=== PATIENT | male | born 1960 | race Hispanic/Latino ===

== ENCOUNTER 2023-04-19 06:44 | Day surgery (SDC) | payer OTHER ==
--- NOTE | 2023-04-18 11:27 | RAD REPORT ---
EXAM DESCRIPTION: Shahana Kennedy (2 Views)04/18/2023 10:59 am CLINICAL HISTORY: Preop gallbladder surgery. Hypertension COMPARISON: None FINDINGS: The lungs appear clear of acute infiltrate. The heart is normal size IMPRESSION: No acute abnormalities displayed
--- NOTE | 2023-04-18 11:38 | EKG ---
Test Date: 2023-04-18 Test Time: 10:44:25 Economics Lecturer: KASHIF MEASUREMENT RESULTS: Intervals: Rate: 75 NV: 154 QRSD: 86 QT: 420 QTc: 469 [place]: P: 51 NV: 154 QRS: 262 T: 64 INTERPRETIVE STATEMENTS: Normal sinus rhythm Right superior axis deviation Pulmonary disease pattern Right ventricular hypertrophy Abnormal ECG No previous ECG available for comparison Electronically Signed On 04-18-23 11:37:38 CDT by Darrion White
[2023-04-18 11:43] LABS: Absolute Lymphocytes (CBC) 2.7 K/uL (0.7-4.9); Hematocrit 42.4 % (39.6-49.0); MCV 91.8 fL (80-100); MPV 8.6 fL (7.6-11.3); Platelets 255 thou/uL (152-406); RBC Red Blood Cell Count 4.62 M/uL (4.33-5.43)
[2023-04-18 11:59] LABS: Albumin 3.6 g/dL (3.4-5.0); Bilirubin Direct 0.1 mg/dL (0-0.2); Bilirubin Indirect, Calculated 0.3 mg/dL (0.2-0.8); Bilirubin Total 0.4 mg/dL (0.2-1.0); Potassium 3.9 mEq/L (3.5-5.1); Protein, Total 7.2 g/dL (6.4-8.2)
[2023-04-19] MEDS ORDERED: CEFAZOLIN SODIUM 1 GM/VIAL ONE (07:10)
[2023-04-19] MEDS ORDERED: Ringers Lactate 1,000 ML IV ONE (07:10)
[2023-04-19] MEDS ORDERED: CEFOXITIN SODIUM 1 GM/VIAL ONE (07:43)
[2023-04-19] MEDS ORDERED: propofoL 200 MG/20 ML VIAL IV ONE (08:03)
[2023-04-19] MEDS ORDERED: LIDOCAINE 2% MPF 5 ML VIAL ONE (08:04)
[2023-04-19] MEDS ORDERED: ROCURONIUM 50 MG/5 ML VIAL IV ONE (08:04)
[2023-04-19] MEDS ORDERED: FENTANYL CITR 100 MCG/2 ML ONE (08:04)
[2023-04-19] MEDS ORDERED: HYDROMORPHONE HCL 2 MG/ML inj ONE (08:11)
[2023-04-19] MEDS ORDERED: SUGAMMADEX SODIUM 200 MG/2 ML VIAL IV ONE (08:12)
[2023-04-19] MEDS ORDERED: SUCCINYLCHOLINE 20 MG/ML (10 ML) IV ONE (08:12)
[2023-04-19] MEDS ORDERED: ONDANSETRON 4 MG/2 ML VIAL ONE (08:43)
[2023-04-19] MEDS ORDERED: dexAMETHasone 4 MG/ML VIAL ONE (08:43)
[2023-04-19] MEDS ORDERED: GLYCOPYRROLATE 0.2 MG/ML SYR ONE ×2 (08:54→09:17)
[2023-04-19] MEDS ORDERED: EPHEDRINE SULF 50 MG/ML VIAL ONE (08:56)
[2023-04-19] MEDS ORDERED: Phenylephrine HCl 10 MG/ML 1 ML VIAL ONE (08:59)
--- NOTE | 2023-04-19 09:09 | P.BOP ---
Preoperative diagnosis: symptomatic cholelithiasis, RUQ abd pain Postoperative diagnosis: same Primary procedure: Laparoscopic cholecystectomy Estimated blood loss: <10cc Specimen: gb Findings: as above, intradominal adhesions Anesthesia: General Complications: None Transferred to: Recovery Room Condition: Good
[2023-04-19] MEDS ORDERED: Mastisol Adhesive Liq ONE (09:16)
[2023-04-19] MEDS ORDERED: KETOROLAC 30 MG/ML INJ ONE (09:18)
[2023-04-19 10:06] VITALS: O2SAT 98
[2023-04-19] MEDS ORDERED: HYDROCODONE/APAP 5/325 MG TAB ONE (10:54)
[2023-04-19 14:30] VITALS: BP 137/81; TEMP 97.5
--- NOTE | 2023-04-19 15:57 | OP ---
Date of Procedure: 04/19/2023 Surgeon: Duglas Torres MD Preoperative Diagnoses: Symptomatic cholelithiasis, right upper quadrant abdominal pain. Postoperative Diagnoses: Symptomatic cholelithiasis, right upper quadrant abdominal pain. Procedure: Laparoscopic cholecystectomy. Estimated Blood Loss: Less than 10 cc. Specimen: Gallbladder. Anesthesia: General plus local. Complications: None. Indications: This is a case of a 63-year-old patient with above diagnoses. Fully explained the bene fits, alternatives, and risks of laparoscopic, possible open cholecystectomy, which include, but not limited to, infection, bleeding, damage to adjacent structures, anesthesia complication, choledocholi thiasis, bile leak, pancreatitis, IA, and even . He also understands this may not relieve any s ymptoms. He might need more than one surgical intervention. He understood, signed a consent. Procedure In Detail: Patient was brought to the operating room, placed in supine position. Anesthes ia was done without complication. A time-out was called. Abdomen was prepped and draped in sterile fashion. Marcaine 0.5% was injected for local anesthetic followed by sharp incision of the skin in t he epigastric region. Incision was carried down to fascia. We tried to stay from the umbilical area . Patient claimed that he had a hernia repair in the past with mesh in that region. So, the first i ncision was made in the epigastric area. Incision was carried down to fascia, which was opened under direct vision. Peritoneum was encountered and opened under direct vision. Vicryl #1 placed inside the fascia. Dameon trocar was carefully introduced. No bleeding was obtained. I placed 2 more troc ars, selected an area just away from the umbilical region, but in the periphery to place a 5 mm troca r under direct visualization. Obviously, I stayed away from the previous repair. Then, we put 2 mor e 5 mm trocar in the right upper quadrant under direct visualization. This allowed me to put a grasp er in the fundus of the gallbladder. We had many omental adhesions to the liver and the gallbladder and they were carefully removed with the help of Endo Tamica connected to Bovie cauterizer. Once we have those released, we were able to visualize the gallbladder and then put a grasper in the fundus o f the gallbladder, another grasper in the infundibulum retracting the gallbladder in the inferolatera l fashion exposing the triangle of Calot, and obtaining critical view. Cystic duct and cystic artery were clearly isolated, freed circumferentially and a connection between those and the gallbladder we re clearly identified. I proceeded to ligate those by using at least 3 clips proximal, 1 clip distal , ligation in middle. Same was done with the cystic artery. No bile leak. No bleeding. The gallbl adder was removed from the liver using Bovie cauterizer and removed from abdominal cavity using EndoC atch through the umbilical incision. Area was inspected once again. No bile leak. No bleeding. At that moment, I proceeded to remove the trocars under direct vision, deflated pneumoperitoneum, close d the fascia with #1 Vicryl, irrigated subcutaneous tissue, closing with 3-0 [address] skin with st aples. Sponge counts and instrument counts were correct. Patient tolerated the procedure well. Pat ient was sent to Recovery in stable condition. RENETTA/MERNA Voice ID: [id number] Report ID: [id number]
--- NOTE | 2023-04-19 16:00 | DS ---
Date of Discharge: 04/19/2023 Diagnoses: Symptomatic cholelithiasis, right upper quadrant abdominal pain. Procedure: Laparoscopic cholecystectomy. Disposition: Home. Activity: As tolerated. No heavy lifting. Plan: Follow up in my office in 1 week. Call for appointment at [phone]. Keep area dry for 48 hour s, then may shower. Keep Steri-Strip intact. RENETTA/MERNA Voice ID: [id number] Report ID: [id number]
== END 2023-04-19 11:17 | disposition home or self-care (01) ==
LOC: OR 06:44
PROVIDERS: ATTEND Surgery
PROC: 0FT44ZZ Resection of Gallbladder, Percutaneous Endoscopic Approach (ICD-10-PCS; principal; 2023-04-19 08:15)
DX: K80.10 Calculus of gallbladder with chronic cholecystitis without obstruction (principal); K66.0 Peritoneal adhesions (postprocedural) (postinfection); G47.33 Obstructive sleep apnea (adult) (pediatric); I10 Essential (primary) hypertension; G89.29 Other chronic pain; M54.9 Dorsalgia, unspecified; M06.9 Rheumatoid arthritis, unspecified; F41.9 Anxiety disorder, unspecified; E66.9 Obesity, unspecified; Z68.31 Body mass index [BMI] 31.0-31.9, adult
CPT/HCPCS: 36415; 71046; 80048; 80076; 83690; 85025; 88304; 93005; J0690; J0694; J1100; J1170; J2001; J2371; J2405; J2704; J3010; J7120

== ENCOUNTER 2024-03-07 11:41 | Observation (INO) | payer OTHER ==
--- OUTSIDE RECORDS SUMMARY | 2024-03-07 11:44 | XMS REPORT | Continuity of Care Document ---
Author Name Unknown Address [address] [facility] [address]. [address] [place] [address] [facility] thconnect Address [address] [facility]. [address] [place] [address] Support Name Relationship Address Phone ADOLFO Do, SBELE Primary Care Physician [address] [place] [address] LILIYA OROSCO MD Emergency Provider [address] [facility] [place] [address] ZOFIA HOFFMAN Next of Kin [address] [place] [address] PEGGY JACOBS, BETSY Hubbard Emergency Provider [address] [place] [address] RICKY JACOBS, MICHAELA Primary Care Physician [address] [facility] [address] [place] [address] IFOEMA KIMBLE [place] [address] MD MORGAN ARAMBULA MD A Emergency Provider [address] [facility] [place] [address] IFEOMA KIMLBE Next of Kin [address] [place] [address] DO Hayley HAHN Primary Care Physician [address] [place] [address] IFEOMA KIMBLE Family Member [address] [place] [address] Unavailable MD HEATH CONTRERAS Emergency Provider [address] [place] [address] MD REJI HANCOCK Primary Care Physician [address] [place] [address] MD HUNTER SYKES Emergency Provider [address] [place] [address] MD VEE BLANTON Emergency Provider [address] [place] [address] MD JEWELS KELLER Emergency Provider [address] [place] [address] Care Team Providers Care Final Inspector Movement Assembly Name Role Phone VANE GAY Attending Clinician Unavailable SOPHY COOK Attending Clinician Unavailab JOHN Porras Attending Clinician Unavailable Ermelinda Mesa MD Attending Clinician [phone] Zhsa_Venecia Attending Clinician Unavailable NATY THAKKAR Attending Clinician Unavailable AYAZ AARON Attending Clinician Unavailab victorina El_Miriam Attending Clinician Unavailable JEWELS KELLER Attending Clinician Unavaillisette Marie Attending Clinician Unavailable REJI HANCOCK Attending Clinician Unavailable RADHA Attending Clinician Unavailable TAMMIE CHACON Attending Clinician Unavailable Ricky_Venecia Admitting Clinician Unavailable Nikko_Miriam Admitting Clinician Unavailable Frank Admitting Clinician Unavailable RADHA Admitting Clinician Unavailable Payers Payer Name Policy Type Policy Number Effective Date Expirati on Date Source [facility] [id number] [facility] (MEDICARE REPLACEMENT/ADVANTAGE - HMO) [id number] 2023 00:00:00 [facility] CARE 4 (PPO) [id number] Problems Condition Name Condition Details Condition Category Status Onset Date Resolution Date Last Treatment Date Treating Clinician Comments Source Hyperlipid emia Hyperlipid emia Problem Active [facility] Wax in ear canal Wax in Ear Canal Problem Active [facility] Tinnitus Tinnitus Problem Active [facility] Hearing loss Hearing Loss Problem Active [facility] Hypertensi ve disorder Hypertensi ve Disorder Problem Active [facility] Coronary arterioscl erosis Coronary Arterioscl erosis Problem Active [facility] Deviated nasal septum Deviated Nasal Septum Problem Active [facility]stone Gallstone Problem Active [facility] Skin lesion Skin Lesion Problem [facility] Rheumatoid arthritis Rheumatoid Arthritis Problem [facility] Acquired trigger finger Acquired Trigger Finger [facility] Dizziness Dizziness Problem Active [facility] Fatigue Fatigue Problem Active [facility] Headache Headache Problem Active [facility] Nausea Nausea Problem [facility] Abdominal pain Abdominal Pain [facility] Right upper quadrant pain Right Upper Quadrant Pain Problem Active [facility] Epigastric pain Epigastric Pain Problem [facility] Hypertroph y of nasal turbinates Hypertroph y of Nasal Turbinates Problem [facility] Allergies, Adverse Reactions, Alerts Allergy Name Allergy Type Status Severity Reaction(s) Onset Date Inactive Date Treating Clinician Comments Source SULFA (SULFONA MIDE ANTIBIOT ICS) Allergy to substanc e Active [facility] Phenerga n Allergy to substanc e Active [facility] Codeine Allergy to substanc e Active [facility] Zoloft Allergy to substanc e [facility] Social History Social Habit Start Date Stop Date Quantity Comments Source Gender identity 2023-09-30 07:20:55 Identifies as male gender (finding) [facility] Smoking Status Start Date Stop Date Source Never smoked tobacco [facility] Medications Ordered Medication Name Filled Medication Name Start Date Stop Date Current Medication? Ordering Clinician Indication Dosage Frequency Signature (SIG) Comments Components Source carvedilol (Coreg) 12.5 MG tablet carvedilol (Coreg) 12.5 MG tablet 01-30 00:00: 00 Yes TAKE 1 TABLET BY MOUTH TWICE DAILY WITH FOOD FOR 90 DAYS [facility] ergocalcife rol (vitamin D2) 1,250 mcg (50,000 unit) capsule TAKE 1 CAPSULE BY MOUTH ONCE A WEEK ergocalcife rol (vitamin D2) 1,250 mcg (50,000 unit) capsule TAKE 1 CAPSULE BY MOUTH ONCE A WEEK No ergocalcif luc (vitamin D2) 1,250 mcg (50,000 unit) capsule TAKE 1 CAPSULE BY MOUTH ONCE A WEEK [facility] hydrocodone 5 mg-acetamin ophen 325 mg tablet TAKE 1 TABLET BY MOUTH THREE TIMES DAILY NEEDED hydrocodone 5 mg-acetamin ophen 325 mg tablet TAKE 1 TABLET BY MOUTH THREE TIMES DAILY NEEDED No hydrocodon e 5 mg-acetami nophen 325 mg tablet TAKE 1 TABLET BY MOUTH THREE TIMES DAILY NEEDED [facility] losartan 100 mg tablet TAKE 1 TABLET BY MOUTH ONCE DAILY FOR 30 DAYS losartan 100 mg tablet TAKE 1 TABLET BY MOUTH ONCE DAILY FOR 30 DAYS No losartan 100 mg tablet TAKE 1 TABLET BY MOUTH ONCE DAILY FOR 30 DAYS [facility] meclizine 25 mg tablet TAKE 1 TABLET BY MOUTH THREE TIMES DAILY NEEDED FOR DIZZINESS meclizine 25 mg tablet TAKE 1 TABLET BY MOUTH THREE TIMES DAILY NEEDED FOR DIZZINESS No meclizine 25 mg tablet TAKE 1 TABLET BY MOUTH THREE TIMES DAILY NEEDED FOR DIZZINESS [facility] metoprolol succinate ER 25 mg tablet,exte nded release 24 hr TAKE 1 TABLET BY MOUTH TWICE DAILY DIRECTED metoprolol succinate ER 25 mg tablet,exte nded release 24 hr TAKE 1 TABLET BY MOUTH TWICE DAILY DIRECTED No metoprolol succinate ER 25 mg tablet,ext ended release 24 hr TAKE 1 TABLET BY MOUTH TWICE DAILY DIRECTED [facility] nifedipine ER 60 mg tablet,exte nded release TAKE 1 TABLET BY MOUTH ONCE DAILY DIRECTED nifedipine ER 60 mg tablet,exte nded release TAKE 1 TABLET BY MOUTH ONCE DAILY DIRECTED No nifedipine ER 60 mg tablet,ext ended release TAKE 1 TABLET BY MOUTH ONCE DAILY DIRECTED [facility] rosuvastati n 10 mg tablet TAKE 1 TABLET BY MOUTH ONCE DAILY rosuvastati n 10 mg tablet TAKE 1 TABLET BY MOUTH ONCE DAILY No rosuvastat in 10 mg tablet TAKE 1 TABLET BY MOUTH ONCE DAILY [facility] sertraline 50 mg tablet TAKE 1/2 (ONE-HALF) TABLET BY MOUTH AT BEDTIME FOR 7 DAYS THEN 1 TABLET AT BEDTIME sertraline 50 mg tablet TAKE 1/2 (ONE-HALF) TABLET BY MOUTH AT BEDTIME FOR 7 DAYS THEN 1 TABLET AT BEDTIME No sertraline 50 mg tablet TAKE 1/2 (ONE-HALF) TABLET BY MOUTH AT BEDTIME FOR 7 DAYS THEN 1 TABLET AT BEDTIME [facility] tamsulosin 0.4 mg capsule TAKE 1 CAPSULE BY MOUTH ONCE DAILY DIRECTED FOR 30 DAYS tamsulosin 0.4 mg capsule TAKE 1 CAPSULE BY MOUTH ONCE DAILY DIRECTED FOR 30 DAYS No tamsulosin 0.4 mg capsule TAKE 1 CAPSULE BY MOUTH ONCE DAILY DIRECTED FOR 30 DAYS [facility] aspirin 81 mg chewable tablet Chew 1 tablet every day by oral route. aspirin 81 mg chewable tablet Chew 1 tablet every day by oral route. No 1 Q1D aspirin 81 mg chewable tablet Chew 1 tablet every day by oral route. [facility] Dexilant 60 mg capsule, delayed release Take 1 capsule every day by oral route for 30 days. Dexilant 60 mg capsule, delayed release Take 1 capsule every day by oral route for 30 days. No 1capsul e(s) Q1D Dexilant 60 mg capsule, delayed release Take 1 capsule every day by oral route for 30 days. [facility] Dymista 137 mcg-50 mcg/spray nasal spray Take 1 g twice a day by nasal route as directed for 30 days. Dymista 137 mcg-50 mcg/spray nasal spray Take 1 g twice a day by nasal route as directed for 30 days. No Dymista 137 mcg-50 mcg/spray nasal spray Take 1 g twice a day by nasal route as directed for 30 days. [facility] losartan 100 mg tablet 1 tab po qd losartan 100 mg tablet 1 tab po qd No losartan 100 mg tablet 1 tab po qd [facility] metoprolol tartrate 25 mg tablet Take 1 tablet twice a day by oral route for 30 days. metoprolol tartrate 25 mg tablet Take 1 tablet twice a day by oral route for 30 days. No 1 BID metoprolol tartrate 25 mg tablet Take 1 tablet twice a day by oral route for 30 days. [facility] Nitrostat 0.4 mg sublingual tablet Nitrostat 0.4 mg sublingual tablet No Nitrostat 0.4 mg sublingual tablet [facility] pantoprazol e 40 mg tablet,pau yed release Take 1 tablet every day by oral route at bedtime for 30 days. pantoprazol e 40 mg tablet,pau yed release Take 1 tablet every day by oral route at bedtime for 30 days. No 1 Q1D pantoprazo le 40 mg tablet,del ayed release Take 1 tablet every day by oral route at bedtime for 30 days. [facility] Paxlovid 300 mg (150 mg x 2)-100 mg tablets in a dose pack take as directed Paxlovid 300 mg (150 mg x 2)-100 mg tablets in a dose pack take as directed No Paxlovid 300 mg (150 mg x 2)-100 mg tablets in a dose pack take as directed [facility] Vital Signs Vital Name Observation Time Observation Value Comments S ource BP Systolic 2024-02-14 00:00:00 160 mm[Hg] [facility] BP Diastolic 2024-02-14 00:00:00 84 mm[Hg] [facility] BMI (Body Mass Index) 2024-02-14 00:00:00 32.5 kg/m2 [facility] Body Weight 2024-02-14 00:00:00 4054 [oz_av] [facility] Height 2024-02-14 00:00:00 74 [in_i] [facility] BMI (Body Mass Index) 2023-02-28 00:00:00 31.5 kg/m2 [facility] Height 2023-02-28 00:00:00 74 [in_i] [facility] Body Weight 2023-02-28 00:00:00 245 [lb_av] [facility] BP Diastolic 2023-02-28 00:00:00 86 mm[Hg] [facility] BP Systolic 2023-02-28 00:00:00 134 mm[Hg] [facility] BP Diastolic 2018-11-12 00:00:00 99 mm[Hg] [facility] Height 2018-11-12 00:00:00 74 [in_i] [facility] BMI (Body Mass Index) 2018-11-12 00:00:00 30.8 kg/m2 [facility] BP Systolic 2018-11-12 00:00:00 147 mm[Hg] [facility] Body Weight 2018-11-12 00:00:00 3840 [oz_av] Naveed brennanchi [facility] Procedures Procedure Date / Time Performed Performing Clinicia n Source Rpr Ing Hernia Init Reduce 2013-10-24 00:00:00 [facility] Rpr Ventral Aditi Init Reduc 2013-10-24 00:00:00 [facility] Colposcopy 2009-06-26 00:00:00 [facility] Egd 2009-06-26 00:[facility]00 [facility] Plan of Care Planned Activity Planned Date Details Comments Source Diagnostic Test Pending 2023-02-28 00:00:00 urinalysis, dipstick [code = urinalysis, dipstick] [facility] P[facility] 2023-02-28 00:00:00 culture, urine + sensitivity [code = culture, urine + sensitivity] [facility] En[facility] Start Date/Time End Date/Time Encounter Type Admission Type Attending [facility] Facility Care Department Encounter ID Source 2022-12-16 09:00:00 Inpatient VANE PRAKASH [facility] [id number] [facility] 2013-03-12 11:12:00 Inpatient [facility] [id number] [facility] 2011-04-18 06:54:00 Inpatient ER SOPHY COOK [facility] [id number] [facility] 2024-03-06 10:56:00 2024-03-06 10:56:00 Outpatient JOHN DOUGLAS [facility] [id number] [facility] 2024-02-14 00:00:00 2024-02-14 00:00:00 Natalia Leach PA-C: [address] [place] [address], [address], [place] [address] , Ph. [facility] [id number] [facility] 2024-01-30 00:00:00 2024-01-31 10:19:14 Ermelinda Mondragon [facility] kirstie Howard [id number] [facility] 2023-10-15 00:00:00 2023-10-15 00:00:00 Outpatient Zuniga_F [facility] [id number] [place] [address] 2023-10-03 15:20:00 2023-10-03 15:20:00 Outpatient NATY CLOUD [facility] [id number] [facility] 2023-03-29 08:58:00 2023-03-29 08:58:00 Outpatient AYAZ RANGEL [facility] [id number] [facility] 2023-02-28 00:00:00 2023-02-28 00:00:00 Outpatient Hananel_A [facility] [id number] [facility] 2023-02-28 00:00:00 2023-02-28 00:00:00 Outpatient Hananel_A [facility] [id number] [facility] 2023-02-28 00:00:00 2023-02-28 00:00:00 Walter El MD: [id number] [facility] [address], [place] [address] , Ph. [facility] [id number] [facility] 2023-02-20 00:00:00 2023-02-20 00:00:00 Outpatient Hananel_A [facility] [id number] [facility] 2023-02-20 00:00:00 2023-02-20 00:00:00 Outpatient Hananel_A [facility] [id number] [facility] 2023-01-04 07:46:00 2023-01-04 07:46:00 Outpatient JC WISEGAY VANE [facility] [id number] [facility] 2022-12-22 07:12:00 2022-12-22 12:10:00 Emergency ER JEWELS KELLER [facility] [id number] [facility] 2022-12-07 00:00:00 2022-12-07 00:00:00 Outpatient Schiffman_Z [facility] [id number] [facility] 2022-11-28 00:00:00 2022-11-28 00:00:00 Outpatient Schiffman_Z [facility] [id number] [facility] 2022-11-28 00:00:00 2022-11-28 00:00:00 Outpatient Schiffman_Z [facility] [id number] [facility] 2022-11-21 15:18:00 2022-11-21 15:18:00 Outpatient REJI VALLADARES [facility] [id number] [facility] 2022-11-03 00:00:00 2022-11-03 00:00:00 Outpatient ADOLFOSETH NEGRETE [facility] [id number] [facility] 2022-09-20 14:20:00 2022-09-20 14:20:00 Outpatient REJI VALLADARES [facility] [id number] [facility] 2022-05-14 13:47:00 2022-05-14 14:30:00 Emergency ER JEWELS KELLER [facility] [id number] [facility] 2021-06-02 04:59:00 2021-06-02 04:59:00 Outpatient RADHA CONN [facility] [id number] [facility] 2020-05-27 02:35:00 2020-05-27 02:35:00 Outpatient Zuniga_F [facility] [id number] [facility] 2020-02-25 12:28:00 2020-02-25 12:28:00 Outpatient Zuniga_F [facility] [id number] [facility] 2018-11-12 00:00:00 2018-11-12 00:00:00 Michaela Mcdonadl MD: [address] [place] [address], [address], [place] [id number] , Ph. [facility] [id number] [facility] 2005-03-22 06:30:00 2005-03-22 06:30:00 Outpatient TAMMIE LUZ [facility] [id number] [facility] 2005-03-21 11:20:00 2005-03-21 11:20:00 Outpatient TAMMIE LUZ [facility] [id number] [facility] Results Test Description Test Time Test Comments Results Result Co mments Source [facility] and B and SARS-CoV+SARS-CoV-2 (COVID- 19) Ag panel - Upper respiratory specimen byRapid [id number] 13:25:00 * Test Item Value Reference Range Interpretation Comme nts RAPID SARS COV (test code = RAPID SARS COV) positive RAPID FLU A (test code = RAP ID FLU A) negative RAPID FLU B (test code = RAP ID FLU B) negative [facility] macro (dipstick) panel - [id number] 14:18:00* Test Item Value Reference Range Interpretation Comme nts leukocytes (test code = leukocytes) trace neg A urobilinogen (test code = urobilinogen) 0.2 E.U./dL sm amt (.5-1mg/dL) protein (test code = protein) negative See_Comment [Automated messa ge] The system which generated this result transmitted reference range: <=150 mg/d. The reference range was not used to interpret this result as normal/abnormal. pH (test code = pH) 6.5 4.5-8 blood (test code = blood) trace-intact See_Comment A [Automated messa ge] The system which generated this result transmitted reference range: <=3 RBC. The reference range was not used to interpret this result as normal/abnormal. specific gravity (test code = specific gravity) 1.010 1.005-1.025 ketone (test code = ketone) negative none bilirubin (test code = bilirubin) negative neg glucose (test code = glucose) negative See_Comment [Automated messa ge] The system which generated this result transmitted reference range: <=130 mg/d. The reference range was not used to interpret this result as normal/abnormal. color (test code = color) yellow yellow clarity (test code = clarity) clear clear or cloudy nitrite (test code = nitrite) negative neg [facility] Notes Date/Time Note Provider Source 2024-01-31 10:19:14 [facility]
[2024-03-07] MEDS ORDERED: LORAZEPAM 1 MG TABLET ONE (12:50)
--- NOTE | 2024-03-07 12:50 | RAD REPORT ---
EXAM DESCRIPTION: CT - Head Brain Wo Cont - 03/07/2024 12:37 pm CLINICAL HISTORY: Confusion/alteration of consciousness COMPARISON: 2021 mri TECHNIQUE: Computed axial tomography of the head was obtained. IV contrast was not requested. All CT scans are performed using dose optimization technique as appropriate and may include automated exposure control or mA/KV adjustment according to patient size. FINDINGS: An intracranial bleed is not seen The ventricles are normal in caliber No significant hypodense areas within the brain visualized No extra-axial fluid collection is noted. Fluid within the sinuses/ mastoids is not seen. Mucus retention cyst left maxillary sinus IMPRESSION: No acute intracranial abnormality is seen If patient's symptoms persist MRI of the brain would be recommended
[2024-03-07 13:11] LABS: Absolute Eosinophils 0.1 K/uL (0-0.5); Absolute Lymphocytes (CBC) 2.1 K/uL (0.7-4.9); Absolute Monocytes 0.6 K/uL (0.1-1.3); Absolute Neutrophil 6.1 K/uL (1.8-8.0); Basophils % 0.5 % (0-1.3); Eosinophils % 1.5 % (0-4.4); Hematocrit 45.4 % (39.6-49.0); Lymphocytes % 23.1 % (15.3-44.8); MCH 30.7 pg (27.0-35.0); MCHC 33.1 g/dL (32.0-36.0); MCV 92.7 fL (80-100); MPV 8.6 fL (7.6-11.3); Monocytes % 6.3 % (3.3-12.3); Neutrophils % 68.6 % (41.7-73.7); Platelets 253 thou/uL (152-406); Red Cell Distribution Width 13.8 % (12.1-15.2)
[2024-03-07 13:28] LABS: Albumin 3.9 g/dL (3.4-5.0); Albumin/Globulin Ratio 1.1 (1.1-1.8); Anion Gap 7.2 mEq/L (5.0-15.0); Bilirubin Direct 0.2 mg/dL (0-0.2); Bilirubin Indirect, Calculated 0.2 mg/dL (0.2-0.8); Bilirubin Total 0.4 mg/dL (0.2-1.0); Globulin 3.6 g/dL (2.3-3.5); Magnesium 2.3 mg/dL (1.6-2.4); Potassium 4.2 mEq/L (3.5-5.1); Protein, Total 7.5 g/dL (6.4-8.2)
[2024-03-07 13:31] LABS: Troponin High Sensitivity 438.7 pg/mL (<58.9)
--- NOTE | 2024-03-07 14:17 | EDPHYS ---
Physician Documentation [facility] Name: Drake Ley Jr Age: 64 yrs Sex: Male : 1960 Arrival Date: 03/07/2024 Time: 11:41 Bed 7 Private MD: ED Physician Chidi Ayala HPI: 03/07 14:17 This 64 yrs old Male presents to ER via Ambulatory with complaints of High rt Blood Pressure. 14:17 Patient was at his eye doctor's office today, he had an acute onset of confusion, rt reports shortness of breath. Patient states that his blood pressure was in the 200s. Patient was brought to the ED for further evaluation. Denied any episodes of chest pain. States that the symptoms have resolved, reports only feeling somewhat anxious currently. Denies other acute complaints at this time, symptoms are moderate in severity, no other aggravating or alleviating factors.. Historical: - Allergies: 12:13 No Known Allergies; tm6 - PMHx: 12:13 Myocardial infarction; Hypertensive disorder; tm6 - PSHx: 12:13 Cholecystectomy; tm6 - Immunization history:: Client reports having NOT received the Covid vaccine. - Infectious Disease History:: Denies. - Social history:: Smoking status: Patient denies any tobacco usage or history of. Patient uses street drugs, marijuana, Patient/guardian denies using alcohol. - Family history:: not pertinent. ROS: 14:17 Constitutional: Negative for fever, chills, and weight loss, Cardiovascular: Negative rt for chest pain, palpitations, and edema, Abdomen/GI: Negative for abdominal pain, nausea, vomiting, diarrhea, and constipation, MS/Extremity: Negative for injury and deformity, Skin: Negative for injury, rash, and discoloration, 14:17 Respiratory: Positive for shortness of breath, Negative for cough, 14:17 Neuro: Positive for Confusion, negative for loss of conscious, Exam: 14:17 Constitutional: This is a well developed, well nourished patient who is awake, alert, rt and in no acute distress. Head/Face: Normocephalic, atraumatic. Chest/axilla: Normal chest wall appearance and motion. Nontender with no deformity. No lesions are appreciated. Cardiovascular: Regular rate and rhythm with a normal S1 and S2. No gallops, murmurs, or rubs. Normal PMI, no JVD. No pulse deficits. Respiratory: Lungs have equal breath sounds bilaterally, clear to auscultation and percussion. No rales, rhonchi or wheezes noted. No increased work of breathing, no retractions or nasal flaring. Abdomen/GI: Soft, non-tender, with normal bowel sounds. No distension or tympany. No guarding or rebound. No evidence of tenderness throughout. Skin: Warm, dry with normal turgor. Normal color with no rashes, no lesions, and no evidence of cellulitis. MS/ Extremity: Pulses equal, no cyanosis. Neurovascular intact. Full, normal range of motion. Neuro: Awake and alert, GCS 15, oriented to person, place, time, and situation. Cranial nerves II-XII grossly intact. Motor strength 5/5 in all extremities. Sensory grossly intact. Cerebellar exam normal. Normal gait. 14:17 ECG was reviewed by the Attending Physician. Vital Signs: 12:11 BP 143 / 104; Pulse 91; Resp 20; Temp 98.2(O); Pulse Ox 99% ; Weight 115.67 kg; Height tm6 6 ft. 2 in. ; Pain 0/10; 12:20 BP 143 / 99; Pulse 89; Resp 20 S; Pulse Ox 99% on R/A; aa5 13:00 BP 128 / 77; Pulse 77; Resp 16 S; Pulse Ox 98% on R/A; aa5 14:00 BP 136 / 87; Pulse 87; Resp 20; Pulse Ox 100% ; db 15:00 BP 141 / 90; Pulse 99; Resp 18; Temp 98; Pulse Ox 97% on R/A; aa5 12:11 Body Mass Index 32.74 (115.67 kg, 187.96 cm) tm6 12:11 Pain Scale: Adult tm6 MDM: 12:18 Patient medically screened. rt 14:20 Differential diagnosis: Hypertensive emergency, intracranial hemorrhage, NSTEMI. Data rt reviewed: vital signs, nurses notes, lab test result(s), EKG, radiologic studies. Consideration of Admission/Observation Patient was admitted/placed on observation. Management of patient was discussed with the following: Patient Relations Director: Discussed with cardiology, will likely cath today.. I considered the following discharge prescriptions or medication management in the emergency department Medications were administered in the Emergency Department. See MAR. Independent interpretation of the following test(s) in the Emergency Department CT Scan: My interpretation is No intracranial hemorrhage seen on interpretation of CT scan images. Care significantly affected by the following chronic conditions: Hypertension. Counseling: I had a detailed discussion with the patient and/or guardian regarding the historical points, exam findings, and any diagnostic results supporting the discharge/admit diagnosis, lab results, radiology results, the need for further work-up and treatment in the hospital. Response to treatment: the patient's symptoms have markedly improved after treatment. 03/07 12:27 Order name: Basic Metabolic Panel; Complete Time: 13:35 rt 03/07 12:27 Order name: CBC with Diff; Complete Time: 13:35 rt 03/07 12:27 Order name: LFT's; Complete Time: 13:35 rt 03/07 12:27 Order name: Magnesium; Complete Time: 13:35 rt 03/07 12:27 Order name: Troponin HS; Complete Time: 13:35 rt 03/07 14:12 Order name: Ptt, Activated; Complete Time: 15:21 rt 03/07 15:34 Order name: Basic Metabolic Panel EDKS 03/07 15:34 Order name: Basic Metabolic Panel EDMS 03/07 15:34 Order name: Basic Metabolic Panel EDMS 03/07 15:34 Order name: CBC with Automated Diff EDMS 03/07 15:34 Order name: CBC with Automated Diff EDMS 03/07 15:34 Order name: CBC with Automated Diff EDMS 03/07 15:34 Order name: Lipid Profile EDKS 03/07 15:34 Order name: Lipid Profile EDMS 03/07 15:34 Order name: Troponin High Sensitivity EDMS 03/07 15:34 Order name: Troponin High Sensitivity EDMS 03/07 15:34 Order name: Troponin High Sensitivity EDMS 03/07 15:34 Order name: Troponin High Sensitivity EDMS 03/07 12:27 Order name: XRAY Chest (1 view) rt 03/07 12:27 Order name: CT Head Brain wo Cont rt 03/07 15:34 Order name: Echo with Doppler EDKS 03/07 12:27 Order name: EKG; Complete Time: 12:28 rt 03/07 15:34 Order name: CONS Physician Consult EDKS 03/07 12:27 Order name: Cardiac monitoring; Complete Time: 12:48 rt 03/07 12:27 Order name: EKG - Nurse/Tech; Complete Time: 12:47 rt 03/07 12:27 Order name: IV Saline Lock; Complete Time: 13:00 rt 03/07 12:27 Order name: Labs collected and sent; Complete Time: 13:00 rt 03/07 12:27 Order name: O2 Per Protocol; Complete Time: 12:47 rt 03/07 12:27 Order name: O2 Sat Monitoring; Complete Time: 12:47 rt EC:17 Rate is 84 beats/min. Rhythm is regular, Normal Sinus Rhythm with No ectopy. Right axis rt deviation noted. HI interval is normal. QRS interval is normal. QT interval is normal. No Q waves. No ST changes noted. Interpreted by me. Administered Medications: 12:51 Drug: LORazepam PO 2 mg PO once Route: PO; tl4 13:20 Follow up: Response: No adverse reaction; Marked relief of symptoms aa5 14:35 Drug: Aspirin PO 325 mg PO once Route: PO; aa5 15:55 Follow up: Response: No adverse reaction aa5 14:37 Drug: Heparin (MO-Bolus No thrombolytic) - HEParin IVP 60 units/kg IVP once; Max 5000 aa5 units {Co-Signature: darnell (Lyndsey Gutierrez RN).} Route: IVP; Site: left wrist; 15:55 Follow up: Response: No adverse reaction aa5 14:38 Drug: Heparin (MO Drip) 12 units/kg/[place] - ([place] [address] units, D5W IV 500 ml) IV at aa5 calculated rate Per protocol; Max initial rate 1000 units/hr {Co-Signature: darnell (Lyndsey Gutierrez RN).} Route: IV; Rate: calculated rate; Site: left wrist; 15:55 Follow up: IV Status: Infusion continued upon admission aa5 Disposition Summary: 03/07/24 14:17 Hospitalization Ordered Notes: Hospitalization Status: Inpatient Admission rt Provider: Starr Pratt rt Location: Telemetry/MedSurg (Inpatient) rt Condition: Fair rt Problem: new rt Symptoms: have improved rt Bed/Room Type: Standard rt Room Assignment: 410(03/07/24 15:37) bc6 Diagnosis - Subsequent non-ST elevation (NSTEMI) myocardial infarction rt Forms: - Medication Reconciliation Form rt - SBAR form rt - Leadership Thank You Letter rt Critical care time excluding procedures: 14:20 Critical care time: Bedside Care: 30 minutes, Consultation: 5 minutes. Total time: 35 rt minutes Signatures: Dispatcher [employer] EDMS Mary Iqbal FNP-C PSYCHOLOGICAL AIDE-Csnw Kori Medina, RN RN aa5 Chidi Ayala MD MD rt Keyana Phipps bc6 Mason Hernández RN RN tm6 Ignacio Meier RN RN tl4 Lyndsey Gutierrez RN db Corrections: (The following items were deleted from the chart) 12:28 12:28 Head Brain Wo Cont+CT.RAD.BRZ ordered. EDMS EDMS 15:37 14:17 rt bc6
--- NOTE | 2024-03-07 14:17 | ER ---
Nurse's Notes [facility] Name: Drake Ley Jr Age: 64 yrs Sex: Male : 1960 Arrival Date: 03/07/2024 Time: 11:41 Bed 7 Private MD: Diagnosis: Subsequent non-ST elevation (NSTEMI) myocardial infarction Presentation: 03/07 12:11 Chief complaint: Patient states: was at an eye appointment and suddenly felt lost and tm6 confused, now I feel normal, only short of breath with heartburn and dizzy, although I have vertigo. Coronavirus screen: Vaccine status: Patient reports being unvaccinated. Ebola Screen: Patient negative for fever greater than or equal to 101.5 degrees Fahrenheit, and additional compatible Ebola Virus Disease symptoms Patient denies exposure to infectious person. Patient denies travel to an Ebola-affected area in the 21 days before illness onset. No symptoms or risks identified at this time. Initial Sepsis Screen: Does the patient meet any 2 criteria? No. Patient's initial sepsis screen is negative. Does the patient have a suspected source of infection? No. Patient's initial sepsis screen is negative. Risk Assessment: Do you want to hurt yourself or someone else? Patient reports no desire to harm self or others. Onset of symptoms was March 07, 2024. 12:11 Method Of Arrival: Ambulatory tm6 12:11 Acuity: JONATHAN 3 tm6 Triage Assessment: 12:13 General: Appears distressed, Behavior is cooperative, anxious. Pain: Denies pain. EENT: tm6 No signs and/or symptoms were reported regarding the EENT system. Neuro: Level of Consciousness is awake, alert, obeys commands, Oriented to person, place, time, situation, Reports being confused at eye appointment. Cardiovascular: Reports shortness of breath, Patient's skin is warm and dry. Respiratory: Reports shortness of breath Airway is patent Respiratory effort is even, unlabored, Respiratory pattern is regular, symmetrical. GI: Abdomen is round non-distended. : No signs and/or symptoms were reported regarding the genitourinary system. Derm: No signs and/or symptoms reported regarding the dermatologic system. Musculoskeletal: No signs and/or symptoms reported regarding the musculoskeletal system. Historical: - Allergies: 12:13 No Known Allergies; tm6 - PMHx: 12:13 Myocardial infarction; Hypertensive disorder; tm6 - PSHx: 12:13 Cholecystectomy; tm6 - Immunization history:: Client reports having NOT received the Covid vaccine. - Infectious Disease History:: Denies. - Social history:: Smoking status: Patient denies any tobacco usage or history of. Patient uses street drugs, marijuana, Patient/guardian denies using alcohol. - Family history:: not pertinent. Screenin:02 [facility] ED Fall Risk Assessment (Adult) History of falling in the last 3 months, tl4 including since admission No falls in past 3 months (0 pts) Confusion or Disorientation No (0 pts) Intoxicated or Sedated No (0 pts) Impaired Gait No (0 pts) Mobility Assist Device Used No (0 pt) Altered Elimination No (0 pt) Score/Fall Risk Level 0 - 2 = Low Risk Oriented to surroundings, Maintained a safe environment, Educated pt \T\ family on fall prevention, incl call for assistance when getting out of bed, Assessed \T\ reinforced patient's understanding of fall precautions. Abuse screen: Denies threats or abuse. Denies injuries from another. Nutritional screening: No deficits noted. Tuberculosis screening: No symptoms or risk factors identified. Assessment: 12:20 General: Appears uncomfortable, Behavior is anxious. Pain: Denies pain. Neuro: Level of aa5 Consciousness is awake, alert, obeys commands, Oriented to person, place, time, situation, Roughener are equal bilaterally Moves all extremities. Gait is steady, Speech is normal, Facial symmetry appears normal, Reports blurred vision since 1 year ago Reports today he was at the eye doctor and felt confused. dizziness. Cardiovascular: Heart tones S1 S2 present Rhythm is regular. Respiratory: Reports shortness of breath Airway is patent Respiratory effort is even, unlabored, Respiratory pattern is regular, symmetrical, Breath sounds are clear bilaterally. GI: Abdomen is round non-distended, Bowel sounds present X 4 quads. Abd is soft and non tender X 4 quads. Reports indigestion, Patient currently denies nausea, vomiting. : No signs and/or symptoms were reported regarding the genitourinary system. EENT: No signs and/or symptoms were reported regarding the EENT system. Derm: Skin is pink, warm \T\ dry. Musculoskeletal: Range of motion: intact in all extremities. 13:18 Reassessment: Patient is alert, oriented x 3, equal unlabored respirations, skin aa5 warm/dry/pink. Patient states feeling better. Patient states symptoms have improved. Reports all symptoms have improved. . 14:00 Reassessment: Patient is alert, oriented x 3, equal unlabored respirations, skin aa5 warm/dry/pink. Patient states feeling better. 15:40 Reassessment: Fiberglass Boat Builder at bedside. . aa5 15:44 Reassessment: Patient appears in no apparent distress at this time. Patient and/or db family updated on plan of care and expected duration. Pain level reassessed. Patient is alert, oriented x 3, equal unlabored respirations, skin warm/dry/pink. CARDIOLOGY AT BEDSIDE. Vital Signs: 12:11 BP 143 / 104; Pulse 91; Resp 20; Temp 98.2(O); Pulse Ox 99% ; Weight 115.67 kg; Height tm6 6 ft. 2 in. ; Pain 0/10; 12:20 BP 143 / 99; Pulse 89; Resp 20 S; Pulse Ox 99% on R/A; aa5 13:00 BP 128 / 77; Pulse 77; Resp 16 S; Pulse Ox 98% on R/A; aa5 14:00 BP 136 / 87; Pulse 87; Resp 20; Pulse Ox 100% ; db 15:00 BP 141 / 90; Pulse 99; Resp 18; Temp 98; Pulse Ox 97% on R/A; aa5 12:11 Body Mass Index 32.74 (115.67 kg, 187.96 cm) tm6 12:11 Pain Scale: Adult tm6 ED Course: 11:44 Patient arrived in ED. ra3 11:44 Chidi Ayala MD is Attending Physician. rt 12:13 Triage completed. tm6 12:13 Arm band placed on left wrist. tm6 12:16 Kori Medina, RN is Primary Nurse. aa5 12:27 Patient has correct armband on for positive identification. Placed in gown. Bed in low tl4 position. Call light in reach. Side rails up X2. Provided Education on: ed process, call szymanski. Client placed on continuous cardiac and pulse oximetry monitoring. NIBP monitoring applied. compliance monitor on. Door closed. Noise minimized. Moved to private room. Warm blanket given. 12:28 EKG done, by ED staff, reviewed by Chidi Ayala MD. tl4 12:39 CT Head Brain wo Cont In Process Unspecified. EDMS 13:00 Basic Metabolic Panel Sent. tl4 13:00 CBC with Diff Sent. tl4 13:00 LFT's Sent. tl4 13:00 Magnesium Sent. tl4 13:00 Troponin HS Sent. tl4 13:02 Initial lab(s) drawn, by me, sent to lab. Inserted saline lock: 22 gauge in right tl4 antecubital area, using aseptic technique. Blood collected. Flushed with 10 mL NS. 13:02 No provider procedures requiring assistance completed. tl4 13:31 Notified ED physician of a critical lab result(s). troponin 438.7. ll1 14:07 XRAY Chest (1 view) In Process Unspecified. EDMS 14:16 Starr Pratt MD is Hospitalizing Provider. rt 14:22 by me, sent to lab. Inserted saline lock: 20 gauge in left wrist, using aseptic aa5 technique. Blood collected. 15:55 Patient admitted, IV remains in place. aa5 Administered Medications: 12:51 Drug: LORazepam PO 2 mg PO once Route: PO; tl4 13:20 Follow up: Response: No adverse reaction; Marked relief of symptoms aa5 14:35 Drug: Aspirin PO 325 mg PO once Route: PO; aa5 15:55 Follow up: Response: No adverse reaction aa5 14:37 Drug: Heparin (CT-Bolus No thrombolytic) - HEParin IVP 60 units/kg IVP once; Max 5000 aa5 units {Co-Signature: darnell (Lyndsey Gutierrez RN).} Route: IVP; Site: left wrist; 15:55 Follow up: Response: No adverse reaction aa5 14:38 Drug: Heparin (CT Drip) 12 units/kg/hr - ([place] [address] units, D5W IV 500 ml) IV at aa5 calculated rate Per protocol; Max initial rate 1000 units/hr {Co-Signature: darnell (Lyndsey Gutierrez RN).} Route: IV; Rate: calculated rate; Site: left wrist; 15:55 Follow up: IV Status: Infusion continued upon admission aa5 Medication: 13:02 VIS not applicable for this client. tl4 Outcome: 14:17 Decision to Hospitalize by Provider. rt 15:55 Admitted to Reading Efficiency Course Director accompanied by nurse, via stretcher, with chart, aa5 15:55 Condition: stable 15:55 Instructed on the need for admit, Demonstrated understanding of instructions, 16:01 Patient left the ED. aa5 Signatures: Dispatcher [employer] EDKori Pressley, RN RN aa5 Susie Enrique RN RN ll1 Lyndsey Gutierrez, RN RN db Chidi Ayala MD MD rt Mason Hernández RN RN 6 Ignacio Meier RN RN 4 Marjorie Monique ra3 Lyndsey Gutierrez RN db Corrections: (The following items were deleted from the chart) 14:38 14:37 Heparin (CT-Bolus No thrombolytic) - HEParin IVP 5000 units IVP in left aa5 antecubital aa5 15:47 15:00 BP 141 / 90; Pulse 102bpm; Resp 18bpm; Pulse Ox 97% RA; db aa5
[2024-03-07] MEDS ORDERED: HEPARIN 5000 UNIT/ML 1 ML VIAL ONE ×2 (14:26→15:53)
[2024-03-07] MEDS ORDERED: ASPIRIN 325 MG TAB ONE ×2 (14:26→15:53)
[2024-03-07] MEDS ORDERED: HEPARIN/D5W 25,000 UNIT/500 ML BAG IV ONE (14:27)
--- NOTE | 2024-03-07 14:30 | RAD REPORT ---
EXAM DESCRIPTION: Shahana Single View03/07/2024 2:05 pm CLINICAL HISTORY: Hypertension. Shortness of breath COMPARISON: 2022 FINDINGS: The lungs appear clear of acute infiltrate. The heart is normal size IMPRESSION: No acute abnormalities displayed
--- NOTE | 2024-03-07 15:14 | P.HP ---
Certification for Inpatient Patient admitted to: Observation With expected LOS: <2 Midnights Patient will require the following post-hospital care: None Practitioner: I am a practitioner with admitting privileges, knowledge of patient current condition, hospital course, and medical plan of care. Services: Services provided to patient in accordance with Admission requirements found in Title 42 Section 412.3 of the Code of Federal Regulations <Mary Iqbal - Last Filed: 03/07/24 15:32> Patient History Date of Service: 03/07/24 Reason for admission: NSTEMI, hypertension History of Present Illness: Mr. Ley is a 64-year-old male with a past medical history of hypertension, and an IN in 2013. He has an unnamed eye disease with progressive blindness and was at his doctor's appointment (to follow-up after eye surgery 2 weeks ago) when they noted significant hypertension with a systolic over 200. He was sent to [facility] emergency department for evaluation. He states that his primary care doctor took him off all of his medications after his IN (many years ago) and at present he only takes baby aspirin (stopped for 1 week prior to his surgery and has not restarted = 3 weeks without aspirin), losartan, carvedilol, Protonix, and hydrocodone. He denies chest pain. He states his last IN caused dizziness without chest pain. Currently he denies dizziness. The ED MD spoke with Dr. Overton who plans a left heart cath later in the day. Mr. Ley will be admitted for evaluation and treatment with continued consultation to Dr. Overton. Initial troponin 438.7, no EKG changes, no other concerning laboratory values. He was given aspirin, lorazepam, and started on a heparin drip. He is n.p.o. CT head was performed and negative for any acute findings Home medications list reviewed: Yes - Past Medical/Surgical History Has patient received pneumonia vaccine in the past: No -: IN in 2014 -cath but no PCI -: 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 His dad fell recently and is in a intermediate and patient is highly stressed and feels guilty that his dad hates it there. Patient smokes marijuana for anorexia and anxiety, no tobacco, denies alcohol use, no other drugs - Family History Mother -: Cancer () Father -: Heart disease, Hypertension (And intermediate) - Social History Smoking Status: Current every day smoker Alcohol use: No CD- Drugs: No Caffeine use: Yes Place of Residence: Home <Bri Iqbalfelipe Rainey - Last Filed: 03/07/24 15:32> Date of Service: 03/07/24 <TerenceTerellpatty Simpson - Last Filed: 03/07/24 17:52> Allergies promethazine [From Phenergan] Allergy (Verified 04/19/23 07:33) Panic Attacks Sulfa (Sulfonamide Antibiotics) Allergy (Verified 04/19/23 07:33) Genital Swelling Home Medications: Carvedilol [Coreg] 12.5 mg PO BID 04/18/23 Hydrocodone 5/APAP 325 [Adrian 5/325] 1 tab PO Q6H PRN 04/18/23 Losartan Potassium 100 mg PO DAILY 04/18/23 Meclizine HCl 25 mg PO TIDP PRN 04/18/23 Ondansetron [Ondansetron Odt] 4 mg PO BIDP PRN 04/18/23 Rosuvastatin [Crestor] 10 mg PO BEDTIME 04/18/23 Hydrocodone Bit/Acetaminophen [Hydrocodon-Acetaminophen 5-325] 1 each PO Q6H PRN #1 04/19/23 Review of Systems 10-point ROS is otherwise unremarkable General: As per HPI Eyes: As per HPI Cardiovascular: Other (Hypertension) Other: Patient states he is highly stressed. <IqbalBrifelipe Rainey - Last Filed: 03/07/24 15:32> Physical Examination - Physical Exam General: Alert, In no apparent distress, Oriented x3 HEENT: Atraumatic, Normocephalic, Other (History of eye disease -surgical procedure to the left eye 2 weeks ago) Neck: Supple Respiratory: Normal air movement Cardiovascular: No edema, Normal pulses, Regular rate/rhythm, Normal S1 S2 Capillary refill: <2 Seconds Gastrointestinal: Normal bowel sounds Musculoskeletal: No clubbing Integumentary: No rashes Neurological: Normal speech, Normal tone, Normal affect Lymphatics: No axilla or inguinal lymphadenopathy External genitalia: Deferred Rectal: Deferred - Studies Laboratory Data (last 24 hrs) 03/07/24 03/07/24 03/07/24 14:22 12:58 12:58 WBC 8.90 Hgb 15.0 Hct 45.4 Plt Count 253 APTT 20.4 L Sodium 138 Potassium 4.2 BUN 7 Creatinine 0.92 Glucose 140 H Magnesium 2.3 Total Bilirubin 0.4 AST 32 ALT 52 Alkaline Phosphatase 80 <Mary Iqballen - Last Filed: 03/07/24 15:32> - Studies Laboratory Data (last 24 hrs) 03/07/24 03/07/24 03/07/24 14:22 12:58 12:58 WBC 8.90 Hgb 15.0 Hct 45.4 Plt Count 253 APTT 20.4 L Sodium 138 Potassium 4.2 BUN 7 Creatinine 0.92 Glucose 140 H Magnesium 2.3 Total Bilirubin 0.4 AST 32 ALT 52 Alkaline Phosphatase 80 <Starr Pratt Calvin - Last Filed: 03/07/24 17:52> Assessment and Plan - Plan Non-STEMI Consult Dr. Overton -done per EDMD Heparin drip/labs per protocol Pain control Serial enzymes -initial troponin 438.7 N.p.o. for possible LHC this afternoon ASA Statin hypertension Carvedilol losartan Anxiety Reassurance Calm environment Keep patient informed of changes VTE/GI prophylaxis - Advance Directives Does patient have a Living Will: No Does patient have a Durable POA for Healthcare: No <Mary Iqballen - Last Filed: 03/07/24 15:32> - Plan Pt seen and examined. I agree with the note by the FARM TECHNICIAN. Pt is a 64yo male with past medical history of hypertension, and CAD , s/p IN in 2013, and progressive blindness who presents with SOB and confusion. The symptoms started while pt was at his senior hadoop developer's office. They sent hime to the ER for evaluation.She has been off aspirin for 3 weeks du eto her eye procedure. The Eye doctor recorded elevated BP. On admission, lab studie show wbc 8.9, Hgb 15, K 4.2, Cr 0.92. Troponin 138 -> 438 -> 413. ER physician consulted cardiology. At bedside, pt is in NAD. A/P: NSTEMI: Troponin is elevated (138 -> 438 -> 413). Will continue heparin drip, BB and statin. cardiology will do cardiac cath. Htn: Continue coreg and losartan Anxiety: Continue prn ativan. DVT ppx: heaprin. Code: full <Starr Pratt - Last Filed: 03/07/24 17:52>
[2024-03-07] MEDS ORDERED: MORPHINE 4 MG/ML SYR IV PRN (15:23)
[2024-03-07] MEDS ORDERED: SODIUM CHLORIDE 0.9% 10ML INJ IV PRN (15:35)
[2024-03-07] MEDS ORDERED: HEPA 1000U/500MLS 2,000 UNIT/1,000 ML BAG IV ONE (15:52)
[2024-03-07] MEDS ORDERED: ATROPINE SULF 1 MG/10 ML SYR IV ONE (15:52)
[2024-03-07] MEDS ORDERED: HEPARIN 10,000 UNIT/10 ML VIAL IV ONE (15:52)
[2024-03-07] MEDS ORDERED: MIDAZOLAM HCL 2 MG/2 ML INJ ONE (15:52)
[2024-03-07] MEDS ORDERED: LIDOCAINE 1% 20 ML MDV ONE (15:52)
[2024-03-07] MEDS ORDERED: CLOPIDOGREL 75 MG TABLET ONE (15:53)
[2024-03-07] MEDS ORDERED: TICAGRELOR 90 MG TABLET PO ONE (15:53)
[2024-03-07] MEDS ORDERED: FENTANYL CITR 100 MCG/2 ML ONE (15:53)
[2024-03-07] MEDS ORDERED: NITROGLYCERIN/D5W 50 MG/250 ML BTL IV ONE (15:54)
--- NOTE | 2024-03-07 15:54 | P.CNS ---
Date of Consult: 03/07/24 Chief Complaint: NSTEMI, hypertension History of Present Illness: Patient with PMH of HTN, presented today from eye doctor clinic, he felt weak, tired, BP was high associated with epigastric discomfort, denies palpitations, no syncope. Allergies promethazine [From Phenergan] Allergy (Verified 04/19/23 07:33) Panic Attacks Sulfa (Sulfonamide Antibiotics) Allergy (Verified 04/19/23 07:33) Genital Swelling Home medications list reviewed: Yes Home Medications: Carvedilol [Coreg] 12.5 mg PO BID 04/18/23 Hydrocodone 5/APAP 325 [[place] 5/325] 1 tab PO Q6H PRN 04/18/23 Losartan Potassium 100 mg PO DAILY 04/18/23 Meclizine HCl 25 mg PO TIDP PRN 04/18/23 Ondansetron [Ondansetron Odt] 4 mg PO BIDP PRN 04/18/23 Rosuvastatin [Crestor] 10 mg PO BEDTIME 04/18/23 Hydrocodone Bit/Acetaminophen [Hydrocodon-Acetaminophen 5-325] 1 each PO Q6H PRN #1 04/19/23 - Past Medical/Surgical History -: AR in 2014 -cath but no PCI -: 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 His dad fell recently and is in a alf and patient is highly stressed and feels guilty that his dad hates it there. Patient smokes marijuana for anorexia and anxiety, no tobacco, denies alcohol use, no other drugs - Family History Mother Medical History: Cancer () Father Medical History: Heart disease, Hypertension (And alf) - Social History Alcohol use: No CD- Drugs: No Caffeine use: Yes Place of Residence: Home Review of Systems 10-point ROS is otherwise unremarkable Physical Examination General: Alert, In no apparent distress HEENT: Atraumatic, PERRLA, Mucous membr. moist/pink, EOMI, Sclerae nonicteric Neck: Supple, 2+ carotid pulse no bruit, No LAD, Without JVD or thyroid abnormality Respiratory: Clear to auscultation bilaterally, Normal air movement Cardiovascular: Regular rate/rhythm, Normal S1 S2 Gastrointestinal: Normal bowel sounds, No tenderness Musculoskeletal: No tenderness Integumentary: No rashes Neurological: Normal gait, Normal speech, Normal tone, Normal affect Lymphatics: No axilla or inguinal lymphadenopathy Laboratory Data (last 24 hrs) 03/07/24 03/07/24 03/07/24 14:22 12:58 12:58 WBC 8.90 Hgb 15.0 Hct 45.4 Plt Count 253 APTT 20.4 L Sodium 138 Potassium 4.2 BUN 7 Creatinine 0.92 Glucose 140 H Magnesium 2.3 Total Bilirubin 0.4 AST 32 ALT 52 Alkaline Phosphatase 80 - Problems (1) NSTEMI (non-ST elevated myocardial infarction) Current Visit: Yes Status: Acute Plan: will get Coronary angiogram get Echo ASA 81 mg daily Lipitor 40 mg daily Heparin drip. (2) HTN (hypertension) Current Visit: Yes Status: Acute Plan: Coreg 25 mg po BID Losartan 100 mg daily
[2024-03-07] MEDS ORDERED: NA CHLORIDE 0.9% 500 ML ONE (15:59)
[2024-03-07] MEDS ORDERED: HEPARIN/D5W 25,000 UNIT/500 ML BAG IV SCH (16:00)
[2024-03-07 16:48] LABS: Troponin High Sensitivity 413.2 pg/mL (<58.9)
[2024-03-07 18:53] VITALS: O2SAT 97
[2024-03-07] MEDS: ALPRAZOLAM 0.25 MG TABLET PO SCH (21:04)
[2024-03-07] MEDS: ATORVASTATIN 40 MG TAB PO SCH (21:05)
[2024-03-07] MEDS: carvediloL 6.25 MG TAB PO SCH (21:05)
[2024-03-07] MEDS ORDERED: MECLIZINE HCL 12.5 MG TAB PO PRN (21:40)
[2024-03-07 23:08] VITALS: BMI 32.7
--- NOTE | 2024-03-07 23:20 | OP ---
Date of Procedure: 03/07/2024 Surgeon: Seun Overton Procedures Performed: 1.Left heart catheterization. 2.Selective coronary angiogram. Indication For Procedure: [id number] IN. Complications: None. Estimated Blood Loss: Less than 50 cc. Access: Right radial, closed by TR band. Sedation Time: 20 minutes with 1 of Versed and 50 of fentanyl. Description Of Procedure: After risks, and benefits, and alternatives were explained to the patient, the patient agreed to proceed with procedure and signed informed consent. The patient was brought b [facility] to the lab nurse, prepped and draped in a sterile fashion. Time-out was performed. Sedation was administered. Next, right radial ultrasound-guided micropuncture technique access was obtained. Nex t, [place] 4 catheter was advanced over the wire into the LV cavity. LVEDP was obtained. Pullback did not show any gradient. Same catheter was used for selective angiogram of the left and right coronar y systems. At the end of the procedure, catheter was removed over a J-wire. Sheath was removed. TR band was applied. Hemostasis achieved. The patient was moved back to recovery in stable condition. Findings: 1.Left main, normal. 2.LAD, normal. 3.Left circ, normal. 4.RCA, normal. 5.LVEDP is 12 mmHg. Assessment And Plan: 1.Normal coronaries. 2.Normal filling pressures. 3.Plan will be to continue aggressive medical treatment for high blood pressure control. VERONICA/MERNA Voice ID: [id number] Report ID: [id number]
[2024-03-08] MEDS: HYDROCODONE/APAP 5/325 MG TAB PO PRN (03:05)
--- NOTE | 2024-03-08 06:19 | P.DS ---
Admission Date: 03/07/24 Discharge Date: 03/08/24 Reason for Admission: NSTEMI, hypertension Consultations: Dr. Overton Procedures: LHC, ECHO Brief History of Present Illness: Mr. Ley is a 64-year-old male with a past medical history of hypertension, and an OH in 2013. He has an unnamed eye disease with progressive blindness and was at his doctor's appointment (to follow-up after eye surgery 2 weeks ago) when they noted significant hypertension with a systolic over 200. He was sent to the emergency department for evaluation. He states that his primary care doctor took him off all of his medications after his OH (many years ago) and at present he only takes baby aspirin (stopped for 1 week prior to his surgery and has not restarted = 3 weeks without aspirin), losartan, carvedilol, Protonix, and hydrocodone. He denies chest pain. He states his last OH caused dizziness without chest pain. Currently he denies dizziness. The ED MD spoke with Dr. Overton who plans a left heart cath later in the day. Mr. Ley will be admitted for evaluation and treatment with continued consultation to Dr. Overton. Initial troponin 438.7, no EKG changes, no other concerning laboratory values. He was given aspirin, lorazepam, and started on a heparin drip. He is n.p.o. CT head was performed and negative for any acute findings Hospital Course: Mr. Ley underwent left heart cath yesterday and was found to have normal coronaries. Dr. Overton recommends patient stay on aggressive medical management. Mr. Ley will undergo an echocardiogram today and then be discharged to home to follow-up with his PCP and cardiology <Mary Iqbal - Last Filed: 03/08/24 06:18> Admission Date: 03/07/24 Discharge Date: 03/08/24 Hospital Course: Pt seen and examined. 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 Cardiac cath showed clean coronary arteries. Will do Echo before discharge. Continue medical management. <Starr Pratt - Last Filed: 03/08/24 11:46> Disposition: ROUTINE DISCHARGE Discharge Condition: GOOD Vital Signs/Physical Exam: Temp Pulse Resp BP Pulse Ox 97.0 F 83 20 132/88 100 03/08/24 04:00 03/08/24 04:00 03/08/24 04:00 03/08/24 04:00 03/08/24 04:00 Laboratory Data at Discharge: WBC 8.90 thou/uL (4.3-10.9) 03/07/24 12:58 Hgb 15.0 g/dL (13.6-17.9) 03/07/24 12:58 Hct 45.4 % (39.6-49.0) 03/07/24 12:58 Plt Count 253 thou/uL (152-406) 03/07/24 12:58 APTT 20.4 SECONDS (24.3-36.9) L 03/07/24 14:22 Sodium 138 mEq/L (136-145) 03/07/24 12:58 Potassium 4.2 mEq/L (3.5-5.1) 03/07/24 12:58 BUN 7 mg/dL (7-18) 03/07/24 12:58 Creatinine 0.92 mg/dL (0.70-1.30) 03/07/24 12:58 Glucose 140 mg/dL (74-106) H 03/07/24 12:58 Magnesium 2.3 mg/dL (1.6-2.4) 03/07/24 12:58 Total Bilirubin 0.4 mg/dL (0.2-1.0) 03/07/24 12:58 AST 32 U/L (15-37) 03/07/24 12:58 ALT 52 U/L (16-61) 03/07/24 12:58 Alkaline Phosphatase 80 U/L (45-117) 03/07/24 12:58 Triglycerides 142 mg/dL (<150) 03/07/24 15:53 Cholesterol 191 mg/dL (<200) 03/07/24 15:53 HDL Cholesterol 28 mg/dL (40-60) L 03/07/24 15:53 Cholesterol/HDL Ratio 6.82 03/07/24 15:53 <Iqbal,Mary Redd - Last Filed: 03/08/24 06:18> Vital Signs/Physical Exam: Temp Pulse Resp BP Pulse Ox 97 F 79 20 124/76 96 03/08/24 08:00 03/08/24 08:28 03/08/24 08:00 03/08/24 08:28 03/08/24 08:00 Laboratory Data at Discharge: WBC 10.10 thou/uL (4.3-10.9) 03/08/24 06:00 Hgb 14.2 g/dL (13.6-17.9) 03/08/24 06:00 Hct 43.0 % (39.6-49.0) 03/08/24 06:00 Plt Count 259 thou/uL (152-406) 03/08/24 06:00 APTT 20.4 SECONDS (24.3-36.9) L 03/07/24 14:22 Sodium 139 mEq/L (136-145) 03/08/24 06:00 Potassium 3.8 mEq/L (3.5-5.1) 03/08/24 06:00 BUN 7 mg/dL (7-18) 03/08/24 06:00 Creatinine 0.81 mg/dL (0.70-1.30) 03/08/24 06:00 Glucose 109 mg/dL (74-106) H 03/08/24 06:00 Magnesium 2.3 mg/dL (1.6-2.4) 03/07/24 12:58 Total Bilirubin 0.4 mg/dL (0.2-1.0) 03/07/24 12:58 AST 32 U/L (15-37) 03/07/24 12:58 ALT 52 U/L (16-61) 03/07/24 12:58 Alkaline Phosphatase 80 U/L (45-117) 03/07/24 12:58 Triglycerides 142 mg/dL (<150) 03/07/24 15:53 Cholesterol 191 mg/dL (<200) 03/07/24 15:53 HDL Cholesterol 28 mg/dL (40-60) L 03/07/24 15:53 Cholesterol/HDL Ratio 6.82 03/07/24 15:53 <Starr Pratt - Last Filed: 03/08/24 11:46> Diet: AHA Activity: Ad dinorah <Iqbal,Mary Redd - Last Filed: 03/08/24 06:18> <Starr Pratt - Last Filed: 03/08/24 11:46> Home Medications: Carvedilol [Coreg] 12.5 mg PO BID 04/18/23 Meclizine HCl 25 mg PO TIDP PRN 04/18/23 Ondansetron [Ondansetron Odt] 4 mg PO BIDP PRN 04/18/23 Hydrocodone Bit/Acetaminophen [Hydrocodon-Acetaminophen 5-325] 1 each PO Q6H PRN #1 04/19/23 Pantoprazole [Protonix Tab*] 40 mg PO DAILY 03/07/24 Aspirin [Aspirin EC 81 MG] 81 mg PO DAILY #360 tab 03/08/24 Atorvastatin Calcium [Lipitor] 40 mg PO BEDTIME #90 tab 03/08/24 Losartan Potassium [Cozaar*] 100 mg PO DAILY #90 tab 03/08/24 carvediloL [Coreg] 25 mg PO BID #180 tab 03/08/24 New Medications: Aspirin [Aspirin EC 81 MG] 81 mg PO DAILY #360 tab carvediloL [Coreg] 25 mg PO BID #180 tab Losartan Potassium [Cozaar*] 100 mg PO DAILY #90 tab Atorvastatin Calcium [Lipitor] 40 mg PO BEDTIME #90 tab Physician Discharge Instructions: Mr. Ley underwent left heart cath yesterday and was found to have normal coronaries. Dr. Overton recommends patient stay on aggressive medical management. Mr. Ley will undergo an echocardiogram today and then be discharged to home to follow-up with his PCP and cardiology New prescriptions: Aspirin 81 mg p.o. daily #360 Losartan 100 mg p.o. daily #90 Coreg 25 mg p.o. twice daily #180 Atorvastatin 40 mg p.o. nightly #90 GOAL: Clear understanding of disease process Diet: AHA, low sodium Activity: ad dinorah INSTRUCTIONS: Physician Discharge Instructions: Okay to DC IV and DC home Follow-up with primary care provider in 1 to 2 weeks Follow-up with cardiology in 2-weeks Please call the inpatient unit for any questions or concerns regarding hospital stay Return to the ER for worsening symptoms Followup: Seun Overton MD [ACTIVE - CAN ADMIT] - 1-2 Weeks Yovany Valle MD [Primary Care Provider] - 1-2 Weeks
[2024-03-08 06:37] LABS: Absolute Basophils 0.1 K/uL (0-0.5); Absolute Eosinophils 0.1 K/uL (0-0.5); Absolute Lymphocytes (CBC) 3.3 K/uL (0.7-4.9); Absolute Monocytes 0.7 K/uL (0.1-1.3); Basophils % 0.7 % (0-1.3); Eosinophils % 1.3 % (0-4.4); Hemoglobin 14.2 g/dL (13.6-17.9); Lymphocytes % 32.3 % (15.3-44.8); MCH 30.6 pg (27.0-35.0); MCHC 33.1 g/dL (32.0-36.0); MCV 92.6 fL (80-100); MPV 8.9 fL (7.6-11.3); Monocytes % 6.7 % (3.3-12.3); Platelets 259 thou/uL (152-406); RBC Red Blood Cell Count 4.65 M/uL (4.33-5.43); Red Cell Distribution Width 14.1 % (12.1-15.2)
[2024-03-08 06:55] LABS: Anion Gap 8.8 mEq/L (5.0-15.0); Potassium 3.8 mEq/L (3.5-5.1)
[2024-03-08] MEDS: LOSARTAN POTASSIUM 50 MG TABLET PO SCH (08:27)
[2024-03-08] MEDS: PANTOPRAZOLE 40MG TABLET PO SCH (08:28)
[2024-03-08] MEDS: ASPIRIN EC 81 MG TAB PO SCH (08:28)
[2024-03-08] MEDS: carvediloL 12.5 MG TAB PO SCH (08:28)
[2024-03-08] MEDS ORDERED: LOSARTAN POTASSIUM 50 MG TABLET PO SCH (09:00)
[2024-03-08] MEDS ORDERED: PANTOPRAZOLE 40 MG INJ IVP SCH (09:00)
[2024-03-08 12:29] VITALS: BP 114/65; TEMP 97.5
--- NOTE | 2024-03-08 14:39 | EKG ---
Test Date: 2024-03-07 Test Time: 12:24:43 [employer]: TL MEASUREMENT RESULTS: Intervals: Rate: 84 ID: [id number] QRSD: 88 QT: 398 QTc: 470 [place]: P: 59 ID: [id number] QRS: 248 T: 57 INTERPRETIVE STATEMENTS: Normal sinus rhythm Right superior axis deviation Right ventricular hypertrophy Abnormal ECG Compared to ECG 04/18/2023 10:44:25 No significant changes Electronically Signed On 03-08-24 14:38:37 CDT by Seun Overton
--- NOTE | 2024-03-12 07:15 | ECHO ---
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-BC 2-DIMENSIONAL: YES M.MODE: YES DOPPLER: YES COLOR FLOW: YES TDS: PORTABLE: YES DEFINITY: YES BUBBLE STUDY: YES DIAGNOSIS: NON ST ELEVATION MYOCARDIAL INFARCTION/ POST HEART CATH CARDIAC HISTORY: CATHERIZATION: YES SURGERY: NO PROSTHETIC VALVE: NO PACEMAKER: NO MEASUREMENTS (cm) DIASTOLIC (NORMALS) SYSTOLIC (NORMALS) IVSd 1.0 (0.6-1.2) LA Diam 3.6 (1.9-4.0) LVEF 60-65% LVIDd 4.0 (3.5-5.7) LVIDs 2.4 (2.0-3.5) %FS 40% LVPWd 1.0 (0.6-1.2) Ao Diam 3.2 (2.0-3.7) 2 DIMENSIONAL ASSESSMENT: RIGHT ATRIUM: NORMAL LEFT ATRIUM: NORMAL RIGHT VENTRICLE: NORMAL LEFT VENTRICLE: NORMAL TRICUSPID VALVE: NORMAL MITRAL VALVE: NORMAL PULMONIC VALVE: NORMAL AORTIC VALVE: NORMAL PERICARDIAL EFFUSION: NONE AORTIC ROOT: NORMAL LEFT VENTRICULAR WALL MOTION: NORMAL DOPPLER/COLOR FLOW: GRADE I DIASTOLIC DYSFUNCTION COMMENTS: 1. NORMAL LEFT VENTRICULAR SYSTOLIC FUNCTION, EJECTION FRACTION 60-65%, NORMAL WALL MOTION 2. GRADE I DIASTOLIC DYSFUNCTION TECHNOLOGIST: KARTHIK RAE
== END 2024-03-08 13:17 | disposition home or self-care (01) ==
LOC: ER 11:41 → ERHOLD 15:23 → 4TH 19:07
PROVIDERS: ADMIT Hospitalist; ATTEND Hospitalist
PROC: 4A023N7 Measurement of Cardiac Sampling and Pressure, Left Heart, Percutaneous Approach (ICD-10-PCS; principal; 2024-03-07)
PROC: B2111ZZ Fluoroscopy of Multiple Coronary Arteries using Low Osmolar Contrast (ICD-10-PCS; 2024-03-07)
DX: I21.4 Non-ST elevation (NSTEMI) myocardial infarction (principal); I10 Essential (primary) hypertension; I25.2 Old myocardial infarction; H57.9 Unspecified disorder of eye and adnexa; H54.7 Unspecified visual loss; F41.9 Anxiety disorder, unspecified; R63.0 Anorexia; F12.90 Cannabis use, unspecified, uncomplicated; F17.200 Nicotine dependence, unspecified, uncomplicated; Z79.899 Other long term (current) drug therapy; Z88.2 Allergy status to sulfonamides; Z88.8 Allergy status to other drugs, medicaments and biological substances; Z90.49 Acquired absence of other specified parts of digestive tract; Z28.310 Unvaccinated for COVID-19; Z82.49 Family history of ischemic heart disease and other diseases of the circulatory system; Z80.9 Family history of malignant neoplasm, unspecified
CPT/HCPCS: 96365; 93005; 93306; 85025 ×2; 80048 ×2; 36415; 83735; 80061; 80076; 85730; 84484 ×3; 70450; 71045; 93458; 76937; 99285; C1893; Q9966; J1644 ×2; J2001; J2250; J3010; G0378 ×5; J7040; 99152; J0461